=== PATIENT | female | born 1935 | race Caucasian/White ===

== ENCOUNTER 2020-05-11 11:16 | Outpatient (REF) | payer MEDICARE, MEDICAID, SELFPAY ==
--- NOTE | 2020-05-11 11:24 | MM_ITS ---
EXAMINATION: BONE DENSITOMETRY CLINICAL INDICATION: Osteoporosis. COMPARISON: None (current study represents initial baseline exam). TECHNIQUE: Using a Betabrand DXA System (software version: 13.1) manufactured by [employer], dual-energy x-ray absorptiometry was performed of the lumbar spine and left hip. The images are of good technical quality. Summary results are attached. FINDINGS: AP SPINE L1-L3 (excluding L4): The data of L1-L4 has been changed to exclude the L4 vertebral body, because degenerative changes at this level may cause overestimation of lumbar spine density. BMD 0.982 g/cm2, Z-score 0.5, T-score -1.6, osteopenia. LEFT FEMUR, NECK: BMD 0.560 g/cm2, Z-score -1.0, T-score -3.4, osteoporosis. LEFT FEMUR, TOTAL: BMD 0.696 g/cm2, Z-score -0.1, T-score -2.5, osteoporosis. IDENTIFIED RISK FACTORS: Menopause, hysterectomy, bilateral oophorectomy. HISTORY OF FRACTURE: None listed. MEDICATIONS: Vitamin D. MM/XR DEXA axial skeleton IMPRESSION: 1. DIAGNOSIS: Osteoporosis based on the lowest T-score value of -3.4 in the femoral neck applying World Health Organization criteria. 2. 10-YEAR FRACTURE RISK PREDICTION, FRAX: Major osteoporotic fracture (clinical spine, forearm, hip or shoulder) 19.0%. Hip fracture 8.3%. 3. Treatment Recommendations: NOF guidelines recommend consideration for treatment in postmenopausal women and men age 50 and older presenting with the following: -A hip or vertebral (clinical or morphometric) fracture. -T-score less than or equal to -2.5 at the femoral neck or spine after appropriate evaluation to exclude secondary causes. -Low bone mass at the hip or spine and a 10-year fracture probability by FRAX of greater than or equal to 3% for hip fracture or greater than or equal to 20% for major osteoporotic fracture based on the [place] adapted WHO algorithm. 4. Other Recommendations: All treatment decisions require clinical judgment and consideration of individual patient factors, including patient preferences, comorbidities, previous drug use, risk factors not captured in the FRAX model (e.g. frailty, falls, vitamin D deficiency, increased bone turnover, interval significant decline in bone density) and possible under or overestimation of fracture risk by FRAX. Additional medical evaluation for secondary cause of low bone mineral density may be appropriate. FUTURE SCAN RECOMMENDATION: People with diagnosed cases of osteoporosis or at high risk for fracture should have regular bone mineral density tests. For patients eligible for Medicare, routine testing is allowed once every 2 years. The testing frequency can be increased to one year for patients who have rapidly progressing disease, those who are receiving or discontinuing medical therapy to restore bone mass, or have additional risk factors.
== END 2020-05-11 11:17 | disposition home or self-care (01) ==
LOC: HO.MAMMO 11:16
PROVIDERS: Visit Provider Family Medicine
DX: Z13.820 Encounter for screening for osteoporosis (principal); Z78.0 Asymptomatic menopausal state; Z90.710 Acquired absence of both cervix and uterus; Z90.722 Acquired absence of ovaries, bilateral
CPT/HCPCS: 77080

== ENCOUNTER 2020-06-19 09:55 | Outpatient (REF) | payer MEDICARE, MEDICAID, SELFPAY ==
--- NOTE | 2020-06-19 15:19 | MHC.AU.P13 ---
Adult Audiological Evaluation Date of Visit: 06/19/20 Machine Lead Burner Used: Brought daughter with her to help translate Reason for Appointment: Audiological evaluation due to concerns for decreased hearing. Patient's daughter notes that she often seems to withdraw from conversations because she does not hear well and does not want to ask for repetition. Does patient feel they have a hearing loss?: Yes If Yes, Which Ear?: Both Ears Has hearing been tested previously?: No Hearing Handicap Inventory: HHIE SCORE: 4 Based on HHIE score, patient has: No perceived hearing handicap Ear History: Family History of Hearing Loss?: Yes: Paternal family hx of severe HL by middle age Medical History: Medical History (Other): Arthritis, high cholesterol Medication List: Atorvastatin Otoscopy: Right Ear: Unremarkable Left Ear: Unremarkable Tympanometry: Tympanometry performed due to: To assess integrity of the middle ear system Right Ear: Normal Middle Ear System (Type A) Left Ear: Normal Middle Ear System (Type A) Hearing Evaluation: Transducer(s) Used: Insert Earphones, Bone Conduction Method: Conventional Audiometry Stimuli Used: Pure Tones Right Ear: Description of Hearing: Normal hearing from 250-500 Hz, sloping to a mild to severe sensorineural hearing loss from 1240-7615 Hz. Left Ear: Description of Hearing: Normal hearing from 250-500 Hz, sloping to a mild to severe sensorineural hearing loss from 2208-2108 Hz. Speech Recognition Threshold (SRT): Method Used: Recorded Lists Stimuli Used: Spondee Words Right Ear: 40 dBHL Left Ear: 40 dBHL Word Discrimination: Method: Recorded Lists Word Lists Used: Lista Bisil?bica (Guamanian) Right Ear: 92% at 80 dBHL Left Ear: 96% at 80 dBHL Recommendations: Audiological re-evaluation in one year. Trial with amplification is recommended. Medical clearance from a physician is required before fitting. Hearing Aid Fitting will be scheduled when all materials arrive. Diagnosis: Primary Diagnosis: H90.3 Bilateral Sensorineural Hearing Loss Services Performed: Services Performed: Comprehensive Audiological Evaluation (CPT 39358) Tympanometry (CPT 15393) Signature: Provider: Jordin Khan, CCC-A
--- NOTE | 2020-06-19 15:20 | MHC.AU.P13 ---
Hearing Aid Evaluation- Binaural Date of Visit: 06/19/20 Booster Pump Oiler Used: Brought daughter with her to help translate Description of Hearing: Mild sloping to severe sensorineural hearing loss bilaterally. Additional Information: Ms. Cotto and her daughter report significant communication barriers due to her hearing loss. She often withdraws from conversations and social settings due to her inability to hear and understand. Binaural amplification is recommended to facilitate improved communication. Rechargeable aids are recommended, as daughter notes that Ms. Cotto is beginning to have some memory problems/ Hearing Instrument Selection: Right Ear: Sales Development Executive: Phonak Model: Audeo P70-R Battery Size: Rechargeable Color: P6 Esthetic Dermatologist: 1 M Left Ear: Sales Development Executive: Phonak Model: Audeo P70-R Battery Size: Rechargeable Color: P6 Esthetic Dermatologist: 1 M Plan: Plan of Care for Hearing Instrument Fitting: Patient wishes to purchase hearing aids as prescribed Action Taken/Action Needed: Medical Clearance to be requested from PCP/ENT Hearing Fitting to be scheduled when materials arrive Comments: Aids will be ordered once MD clearance received. Diagnosis Code(s): Primary Diagnosis: H90.3 Bilateral Sensorineural Hearing Loss Signature: Provider: Jordin Khan, CCC-A
--- NOTE | 2020-06-19 15:21 | MHC.AU.MED ---
Medical Clearance for Hearing Instrumentation Date: 06/19/20 Patient Name: Chula Cotto Date of : 1935 Referring Provider: Yudy Yusuf MD We have seen your patient on 06/19/20 and have determined that they are a candidate for amplification (See accompanying report). Specifically, they would benefit from: Hearing aid use in both ears There is a statute that addresses Medical Evaluation Requirements prior to fitting a patient with a hearing aid. According to [place] statute [facility] CMR:6.03(1), (a) General. Except as provided in 265 CMR 6.03(1)(b), a hearing aid specialist shall not sell a hearing aid unless the prospective user has presented to the hearing aid specialist a written statement signed by a licensed physician that states that the patient's hearing loss has been medically evaluated and the patient may be considered a candidate for a hearing aid. The medical evaluation must have taken place within the preceding six months. Please note: Due to the [place] Statute referenced above, we cannot accept a signature other than that of a licensed physician. DATA ENTRY PROCESSOR and PA signatures cannot be accepted. I am in agreement with the above recommendation. There is no medical contraindication for hearing instrumentation. Physician Signature Date Physician Name (Printed)
== END 2020-06-19 09:56 | disposition home or self-care (01) ==
LOC: HO.SH 09:55
PROVIDERS: Visit Provider Family Medicine
DX: Z46.1 Encounter for fitting and adjustment of hearing aid (principal); H90.3 Sensorineural hearing loss, bilateral
CPT/HCPCS: 92557; 92567; 92591

== ENCOUNTER 2020-07-31 14:56 | Outpatient (REF) | payer MEDICARE, MEDICAID, SELFPAY | END 2020-07-31 14:57 | disposition home or self-care (01) | LOC: HO.HAP 14:56 | PROVIDERS: Visit Provider Family Medicine | DX: Z46.1 Encounter for fitting and adjustment of hearing aid (principal); H90.3 Sensorineural hearing loss, bilateral | CPT/HCPCS: V5011; V5020; V5160; V5261 ==

== ENCOUNTER 2020-08-19 14:46 | Outpatient (REF) | payer MEDICARE, MEDICAID, SELFPAY | END 2020-08-19 14:47 | disposition home or self-care (01) | LOC: HO.HAP 14:46 | PROVIDERS: Visit Provider Internal Medicine | DX: Z13.89 Encounter for screening for other disorder (principal) ==

== ENCOUNTER 2021-06-15 10:03 | Outpatient (REF) | payer MEDICARE, MEDICAID, SELFPAY ==
--- NOTE | 2021-06-15 16:14 | MHC.AU.AHA ---
Adult Audiological Evaluation Date of Visit: 06/15/21 Technical Services Rep Used: Patient's daughter provided Hungarian interpretation Reason for Appointment: Ms. Cotto was seen for a yearly evaluation due to concerns of a change in hearing status. Patient was fit with bilateral bnbovepn-mf-ing-canal hearing aids in July 2020 but reports that she hasn't been able to adjust to them and hasn't worn them much since she was fit. Ms. Cotto has been having significant difficulties adjusting to the use of DIPAK style hearing aids. She has been having difficulties with insertion and interference of fit due to her glasses. She is interested in trying a different style hearing aid. Her daughter notes that communicating with Ms. Cotto can be difficult due to her inability to hear and understand speech at a normal listening volume or when in the presence of background noise. Previous Hearing Test Results: Previous examination was at our clinic on 06/19/2020 revealing normal hearing through 500 Hz sloping to a severe sensorineural hearing loss thereafter. Ear History: Family History of Hearing Loss?: Yes: Paternal family hx of severe HL by middle age Medical History: Medical History: Arthritis, high cholesterol, history of skin cancer Allergies: No known allergies Medication List: Atorvastatin, Vitamin B/Folic Acid, Fluorouracil, Zostavax, Calcium 600 + Vitamin D, Alendronate sodium Hearing Instrument History- Right Ear: Cutlery Grinder: [employer] ([employer]) Model: Audeo P70-R Serial Number: [id number] Battery Size: Rechargeable Repair Warranty: 10/13/2023 Loss and Damage Warranty: 10/13/2023 Dispensed By: [facility] Date of Fittin07/31/2020 Hearing Instrument History- Left Ear: Cutlery Grinder: [employer] ([employer]) Model: Audeo P70-R Serial Number: [id number] Battery Size: Rechargeable Warranty: 10/13/2023 Loss and Damage Warranty: 10/13/2023 Dispensed By: [facility] Date of Fittin07/31/2020 Otoscopy: Right Ear: Unremarkable Left Ear: Unremarkable Tympanometry: Tympanometry performed due to: To assess integrity of the middle ear system Right Ear: Normal Middle Ear System (Type A) Left Ear: Normal Middle Ear System (Type A) Hearing Evaluation: Transducer(s) Used: Insert Earphones, Bone Conduction Method: Conventional Audiometry Stimuli Used: Pure Tones Right Ear: Description of Hearing: Normal hearing at 250 Hz sloping to a mild to severe sensorineural hearing loss from 500-8000 Hz. Left Ear: Description of Hearing: Mild sloping to severe sensorineural hearing loss from 250-8000 Hz. Speech Recognition Threshold (SRT): Method Used: Recorded Lists Stimuli Used: Hungarian Trisyllable Words Right Ear: 45 dB HL Left Ear: 45 dB HL Word Discrimination: Method: Recorded Lists Word Lists Used: Lista Bisil?bica (Hungarian) Right Ear: 88% at 80 dB HL Left Ear: 96% at 80 dB HL Comparison: Compared to the most recent evaluation: Hearing is stable. Interpretation of Results: Ms. Cotto has a severe sensorineural hearing loss and would benefit greatly from the consistent use of hearing devices. Recommendations: Audiological re-evaluation in one year. Medical clearance from a physician is required before fitting. Prior authorization will be requested for new hearing aids. If approved, hearing aids will be ordered. Diagnosis: Primary Diagnosis: H90.3 Bilateral Sensorineural Hearing Loss Services Performed: Comprehensive Audiological Evaluation (CPT 11395) Tympanometry (CPT 26132) Signature: Student/Clinical Fellow: Yes: Jessy Shepherd BA, Jordin Speech Language Specialist I have reviewed/agreed with student/fellow documentation: Yes Provider: Jordin Khan, [facility]
--- NOTE | 2021-06-15 16:18 | MHC.AU.HAS ---
Hearing Aid Evaluation Date of Visit: 06/15/21 Work Order Sorting Clerk Used: Declined by Patient Historical Information: Description of Hearing: Mild sloping to severe sensorineural hearing loss bilaterally. Current personal amplification information, if applicable: Bilateral Phonak Audeo P70s Summary: Ms. Cotto has been having significant difficulties adjusting to the use of DIPAK style hearing aids. She has been having difficulties with insertion and interference of fit due to her glasses. She has not been able to use them successfully since she received them. She and her daughter both note significant communication difficulties due to Ms. Cotto's hearing loss. Binaural amplification is highly recommended to help facilitate improved communication and quality of life. She would like to try an in-the-ear style hearing aid. Given that the previous hearing aids were fit last year, they cannot be returned to the product safety lead. Prior authorization for a different style hearing aid will be requested through her insurance. Hearing Aid Prescription: Based on the individual?s shared listening needs, communication environments, dexterity, desire for connectivity, and personal preferences, the following prescription for amplification has been made: Right ear: Asset Recovery Specialist: gridComm Model: Evolv AI 1600 CIC NW Battery Size: 10 Color: Walnut Left ear: Asset Recovery Specialist: Gabi Model: Evolv AI 1600 CIC NW Battery Size: 10 Color: Walnut Plan of Care: Earmold Impressions Taken. Prior authorization to be requested. Medical Clearance to be requested from PCP/ENT. If approved, hearing aids will be ordered and a hearing aid fitting will be scheduled when materials arrive. Earmold impressions are in the hold drawer. Primary Diagnosis: H90.3 Bilateral Sensorineural Hearing Loss Signature: Student/Clinical Fellow: Yes: Jessy Shepherd BA, Jordin Benefits Technician I have reviewed/agreed with student/fellow documentation: Yes Provider: Jordin Khan, CCC-A
--- NOTE | 2021-06-15 16:19 | MHC.AU.MED ---
Medical Clearance for Hearing Instrumentation Date: 06/15/21 Patient Name: Chula Cotto Date of : 1935 Referring Provider: Kiki Clarke MD We have seen your patient on 06/15/21 and have determined that they are a candidate for amplification (See accompanying report). Specifically, they would benefit from: Hearing aid use in both ears There is a statute that addresses Medical Evaluation Requirements prior to fitting a patient with a hearing aid. According to [place] statute [facility] CMR:6.03(1), (a) General. Except as provided in 265 CMR 6.03(1)(b), a certified hearing instrument dispenser shall not sell a hearing aid unless the prospective user has presented to the certified hearing instrument dispenser a written statement signed by a licensed physician that states that the patient's hearing loss has been medically evaluated and the patient may be considered a candidate for a hearing aid. The medical evaluation must have taken place within the preceding six months. Please note: Due to the [place] Statute referenced above, we cannot accept a signature other than that of a licensed physician. SUPERVISOR PRODUCT INSPECTION and PA signatures cannot be accepted. I am in agreement with the above recommendation. There is no medical contraindication for hearing instrumentation. Physician Signature Date Physician Name (Printed)
== END 2021-06-15 10:04 | disposition home or self-care (01) ==
LOC: HO.SH 10:03
PROVIDERS: Visit Provider Family Medicine
DX: Z46.1 Encounter for fitting and adjustment of hearing aid (principal); H90.3 Sensorineural hearing loss, bilateral
CPT/HCPCS: 92557; 92567; 92591; V5275

== ENCOUNTER 2023-08-22 08:25 | Outpatient (REF) | payer OTHER, SELFPAY ==
[2023-08-22 13:53] LABS: MANUAL DIFF FLAG NO
[2023-08-22 13:55] LABS: Basophils Percent Auto 0.5 % (0-2); Eosinophils Absolute Auto 0.2 X10*3/uL (0.0-0.4); Eosinophils Percent Auto 2.6 % (0-4); Hematocrit 38.7 % (37.0-47.0); Hemoglobin 12.5 g/dl (12.0-16.0); Imm Gran Abs Auto 0.01 X10*3/uL (0.00-0.03); Imm Gran Pct Auto 0.2 % (0.0-0.4); Lymphocytes Absolute Auto 1.5 X10*3/uL (1.2-4.9); Lymphocytes Percent Auto 25.7 % (20-40); Mean Corpuscular HGB Conc 32.3 g/dl (31.0-35.0); Mean Corpuscular Hemoglobin 30.1 pg (27.0-33.0); Mean Corpuscular Volume 93.3 fL (80.0-98.0); Mean Platelet Volume 10.1 fL (9.4-12.3); Monocytes Absolute Auto 0.6 X10*3/uL (0.1-1.2); Monocytes Percent Auto 11.2 % (2-11); Neutrophils Absolute Auto 3.4 x10*3/uL (2.0-8.3); Neutrophils Percent Auto 59.8 % (45-73); Platelet Count 249 X10*3/uL (160-400); Red Blood Count 4.15 X10*6/uL (4.20-5.50); White Blood Count 5.7 X10*3/uL (4.8-10.8)
[2023-08-22 14:22] LABS: Alanine Aminotransferase 14 U/L (0-31); Albumin Level 3.7 g/dL (3.5-5.0); Alkaline Phosphatase 92 U/L (39-117); Anion Gap 9 (12-20); Aspartate Amino Transferase 21 U/L (5-31); Bilirubin Total 0.7 mg/dL (0.0-1.0); Blood Urea Nitrogen 13 mg/dL (9-16); Calcium 9.4 mg/dL (8.4-10.2); Carbon Dioxide 28 mmol/L (22-29); Chloride 109 mmol/L (96-108); Cholesterol 144 mg/dL (<200); Estimated Glomerular Filt Rate > 60; Glucose Random 82 mg/dL (60-115); HDL Cholesterol 61 mg/dL (>40); LDL Cholesterol Calculated 70 mg/dL (<100); Potassium 3.9 mmol/L (3.3-5.1); Sodium 142 mmol/L (135-145); Total Protein 6.9 g/dL (6.5-8.0); Triglycerides 66 mg/dL (<150)
== END 2023-08-22 08:26 | disposition home or self-care (01) ==
LOC: HO.CHCLDS 08:25
PROVIDERS: Visit Provider Family Medicine
DX: Z00.00 Encounter for general adult medical examination without abnormal findings (principal); Z13.6 Encounter for screening for cardiovascular disorders
CPT/HCPCS: 36415; 80053; 80061; 82306; 85025

== ENCOUNTER 2024-08-16 10:38 | Outpatient (REF) | payer OTHER, SELFPAY ==
[2024-08-16 14:15] LABS: MANUAL DIFF FLAG NO
[2024-08-16 14:42] LABS: Basophils Percent Auto 0.1 % (0-2); Eosinophils Percent Auto 0.2 % (0-4); Hematocrit 38.1 % (37.0-47.0); Hemoglobin 12.5 g/dl (12.0-16.0); Imm Gran Abs Auto 0.02 X10*3/uL (0.00-0.03); Imm Gran Pct Auto 0.2 % (0.0-0.4); Lymphocytes Percent Auto 24.5 % (20-40); Mean Corpuscular HGB Conc 32.8 g/dl (31.0-35.0); Mean Corpuscular Hemoglobin 29.9 pg (27.0-33.0); Mean Corpuscular Volume 91.1 fL (80.0-98.0); Mean Platelet Volume 9.6 fL (9.4-12.3); Monocytes Absolute Auto 0.7 X10*3/uL (0.1-1.2); Monocytes Percent Auto 8.6 % (2-11); Neutrophils Absolute Auto 5.3 x10*3/uL (2.0-8.3); Neutrophils Percent Auto 66.4 % (45-73); Platelet Count 282 X10*3/uL (160-400); Red Blood Count 4.18 X10*6/uL (4.20-5.50); Red Cell Distribution Width 12.5 % (11.0-16.0)
[2024-08-16 15:00] LABS: Alanine Aminotransferase 14 U/L (0-31); Albumin Level 3.8 g/dL (3.5-5.0); Alkaline Phosphatase 91 U/L (39-117); Anion Gap 8 (12-20); Aspartate Amino Transferase 23 U/L (5-31); Bilirubin Total 0.5 mg/dL (0.0-1.0); Blood Urea Nitrogen 15 mg/dL (9-16); Calcium 9.5 mg/dL (8.4-10.2); Carbon Dioxide 27 mmol/L (22-29); Chloride 109 mmol/L (96-108); Cholesterol 147 mg/dL (<200); Estimated Glomerular Filt Rate > 60; Glucose Random 97 mg/dL (60-115); HDL Cholesterol 60 mg/dL (>40); LDL Cholesterol Calculated 74 mg/dL (<100); Potassium 3.8 mmol/L (3.3-5.1); Sodium 140 mmol/L (135-145); Triglycerides 66 mg/dL (<150)
[2024-08-16 15:01] LABS: Estimated Average Glucose 117 mg/dL; Hemoglobin A1c % 5.7 % (<6.0)
[2024-08-16 15:04] LABS: TSH reflex Free T4 0.84 uIU/mL (0.32-4.0); Vitamin D 25-OH Total 48.1 ng/mL (>30)
== END 2024-08-16 10:39 | disposition home or self-care (01) ==
LOC: HO.CHCLDS 10:38
PROVIDERS: Visit Provider Registered Nurse
DX: Z00.00 Encounter for general adult medical examination without abnormal findings (principal); Z13.1 Encounter for screening for diabetes mellitus; Z13.6 Encounter for screening for cardiovascular disorders
CPT/HCPCS: 36415; 80053; 80061; 82306; 83036; 84443; 85025

== ENCOUNTER 2024-09-24 10:42 | Outpatient (REF) | payer OTHER, SELFPAY ==
--- NOTE | ~2024-09-24 | MM_ITS ---
EXAMINATION: DXA BONE DENSITY AXIAL HISTORY: OSTEOPOROSIS TECHNIQUE: Syndero Dual energy absorptiometry (DEXA) of the lumbar spine, total left hip, and femoral neck was performed. COMPARISON: Comparison is made with the prior examination dated 05/11/2020. FINDINGS: The bone mineral density of the lumbar spine is 1.012 with a T-score of -1.3, and a Z-score of 0.9. This is indicative of osteopenia. This represents a BMD change of 10.0% compared to the prior exam. This is statistically significant. The bone mineral density of the left total hip is 0.774 with a T-score of -1.9, and a Z-score of 0.7. This is indicative of osteopenia. This represents a BMD change of 11.2% compared to the prior exam. This is statistically significant. The bone mineral density of the left femoral neck is 0.684 with a T-score of -2.5, and a Z-score of 0.1. This is indicative of osteoporosis. This represents a BMD change of 22.1% compared to the prior exam. FRACTURE RISK: The FRAX index suggests a ten year probability of major osteoporotic fracture of 10.7%, and of hip fracture 3.8%. MM/XR DEXA axial skeleton IMPRESSION: Based on bone mineral density, and according to World Health Organization (WHO) criteria, the diagnosis is consistent with osteoporosis. All bone density values are in grams per centimeter squared (g/cm2). Statistically, 68% of repeat scans fall within 1 SD (+/- 0.010 g/cm2 for AP spine L1-L4) and 1 SD (+/- 0.012 g/cm2 for femur total) FRAX is a trademark of the [employer]'s [employer] Metabolic [employer] Disease, a World Health Organization (WHO) Collaborating Center. Electronically signed by: Charlie Vogt MD 09/24/2024 12:37 PM EDT
--- OUTSIDE RECORDS SUMMARY | 2024-09-24 12:21 | XMS_ITS | Encounter Summary ---
Author Organization [employer] Address [address] [place] [address] Care Team Providers Care Pointer Machine Operator Name Role Phone Yudy Yusuf MD Primary Care Provider [phone] Reason for Visit * Reason Onset Date Comments Pre op 09/04/2024 Encounter Details Date Type Department Care Team (Late st Contact Info) Description 09/04/2024 Telephone [facility] MEDICINE [address] [place] [address] Yudy Yusuf MD [address] [place] [address] Pre op Social History Tobacco Use Types Packs/Day Years Used Date Smoking Tobacco: Never Smokeless Tobacco: Never Alcohol Use Standard Drinks/Week Comments Defer 0 (1 standard drink = 0.6 oz pur e alcohol) Depression Answer Date Recorded Patient Health Questionnaire-9 Score 0 08/16/2024 Patient Health Questionnaire-9 Score 0 08/16/2024 Last PHQ-9: Questionnaire Data Not on file 0 08/16/2024 Housing Stability Answer Date Recorded What is your housing situation today? I have sundar mosqueda 08/16/[address] you li ve. Do you have problems with any of the following? None of the above 08/16/2024 Food Insecurity Answer Date Recorded Within the past 12 months, y ou worried that your food would run out before you got money to buy more: Never True 08/16/2024 Within the past 12 months,th e food you bought just didn't last and you didn't have enough money to get more: Never True Transportation Answer Date Recorded In the past 12 months, has l ack of transportation kept you from medical appts, meetings, work or from getting things needed for daily living? No 08/14/2023 Utilities Answer Date Recorded In the past 12 months, has t he electric, gas, oil or water company threatened to shut off services in your home? No 08/16/2024 Depression Answer Date Recorded Patient Health Questionnaire-2 Score 0 08/16/2024 Internet Access Answer Date Recorded Internet Access Q1 No 08/16/2024 Internet Access Q2 Not on file 08/16/2024 Comments Unknown Sex and Gender Information Value Date Recorded Sex Assigned at Female 03/21/2022 10:29 AM EDT Legal Sex Female 10:29 AM EDT Gender Identity Female 03/21/2022 10:29 AM EDT Sexual Orientation Straight 03/21/2022 10 :29 AM EDT documented as of this encounter Miscellaneous Notes * Telephone Encounter - Francine Benites - 09/06/2024 9:46 AM EDT Facility agreed to pre op appointment on 11/01/24 at 2:45PM with Reg[facility]. Appointment reminder letter mailed * Telephone Encounter - Sridhar Rodriguez - 09/04/2024 10:35 AM EDT Date of Surgery: 11/20/24 Surgical procedure being done: Repair of Basale cell [place] Type of anesthesia: general anesthesia Lab needed: To the Providers desgretion EKG: Providers Choice Surgeon's name: Dr. Ignacio Alejandro Facility name: [facility] Surgeon's office number: [phone] Surgeon's office fax number: [phone] Contact name (person you spoke with): Zoraida Last office note from surgeon requested: No Send Message to Francine Benites and Christiano Marquis Contact Zoraida at [phone] documented in this encounter Plan of Treatment Upcoming Encounters Date Type Department Care Team (Late st Contact Info) Description 11/01/2024 2:45 PM EDT Office Visit [facility] MED [facility] P[facility]S [address] [place] [address] Tank Rajput MD [address] [place] [address] documented as of this encounter Visit Diagnoses Not on filedocumented in this encounter Additional Health Concerns Assessment Noted Time PHQ-9 Depression Total Score: 0 08/17/19 25 1:17 PM EDT documented as of this encounter Care Teams Pointer Machine Operator Relationship Specialty Start Date End Date Yudy Yusuf MD [address] [place] [id number] PCP - General Family Medicine 04/27/21 documented as of this encounter
--- OUTSIDE RECORDS SUMMARY | 2024-09-24 12:21 | XMS_ITS | Clinical Summary ---
Author Organization [employer] Address [address] [place] [address] Care Team Providers Care Exploration Geologist Name Role Phone Yudy Yusuf MD Primary Care Provider [phone] Allergies No known active allergies Medications alendronate (Fosamax) 70 MG tablet TAKE 1 TABLET EVERY WK IN THE AM, AT LEAST 30 MIN BEFORE FIRST FOOD, BEVERAGE, OR MEDICATION OF DAY 12 tablet 3 4 Active atorvastatin (Lipitor) 40 MG tablet TAKE 1 TABLET BY MOUTH EVERYDAY AT BEDTIME 90 tablet 3 4 Active Active Problems Problem Noted Date Diagnosed Date Osteoporosis 07/25/2022 Assessment & Plan (08/18/2024 8:53 AM EDT): Continue Alendronate and OTC calcium/vitamin D supplementation Bone density study ordered to evaluate the effectiveness of treatment and osteoporosis progression. Encouraged fall prevention strategies. Assessment & Plan (08/14/2023 11:06 PM EDT): Continue Alendronate and vitamin D supplementation. Scheduled a bone density study to evaluate the effectiveness of treatment and osteoporosis progression. Educated the patient on fall prevention strategies. Physical exam, annual 07/25/2022 Assessment & Plan (08/14/2023 11:09 PM EDT): - Doing well. Reviewed medications. Health screening. - Does have some decline in her mobility and memory since last year but stable - Reported elbow tenderness but it is likely related to age. Recommend OTC pain relief as needed and monitor for any worsening. - Continue to monitor weight and nutritional intake. Educated patient on nutrition and exercise. Labs: Lipid panel, CBC, CMP, Vitamin D, Albumin Assessment & Plan (07/25/2022 2:38 PM EST): Doing well. Reviewed medications. Health screening. Get up and go: 14 seconds, does have risk of falls On second year of alendronate, will check labs and followup as needed GDS score: 1 Does have some decline in her mobility and memory since last year but stable Did notice 6 lbs weight gain, decrease appetite. Will send labs. Needs [employer] gold for program Hypercholesterolemia 06/11/2015 Overview (08/18/2024): Lab Results Component Value Date CHOL 147 08/16/2024 CHOL 144 08/22/2023 TRIG 66 08/16/2024 TRIG 66 08/22/2023 TRIG 91 07/25/2022 HDL 60 08/16/2024 HDL 61 08/22/2023 LDLCHOLCAL 74 08/16/2024 LDLCHOLCAL 70 08/22/2023 -cont atorvastatin 40mg nightly -continue lifestyle modification Assessment & Plan (08/18/2024 8:53 AM EDT): Well controlled, cont current regimen Encounters Date Type Department Care Team Description 09/04/2024 Telephone [facility] [address] [place] [address] Yudy Yusuf MD Pre op 08/16/2024 9:30 AM EDT Office Visit [facility] [address] [place] [address] Maribell Ureña, GUILLERMO Osteoporosis, unspecified osteoporosis type, unspecified pathological fracture presence (Primary Dx); Hypercholesterolemia; Dietary counseling; Exercise counseling; Healthcare maintenance 08/16/2024 Travel 08/15/2024 Telephone [facility] [address] [place] [address] Yudy Yusuf MD Chart Prep 08/09/2024 Patient Outreach [facility] [address] [place] [address] Yudy Yusuf MD Pre-visit Planning ([facility] unable to reach [facility] ) from Last 3 Months Immunizations Name Administration Dates Next Due Influenza High-dose Quadriva lent Preservative Free 03/04/2023,01/30/2021 Influenza Quadrivalent Adjuvanted 03/07/2022,04/2020 Influenza injectable quadriv alent preservative free 01/30/2020 Influenza, High Dose Seasona l, Preservative Free 03/02/2024,01/26/2019,02/26/2018,03/07,03/05/2016 Pneumococcal Conjugate PCV 13 02/28/2020, 020 Pneumococcal Conjugate PCV 20 03/02/2024 Pneumococcal Polysaccharide PPSV23 07/17/2017 RSV Adjuvant 03/04/2023 Tdap 07/17/2017 Zoster, Recombinant 11/15/2019,03/10/2019 Social History Tobacco Use Types Packs/Day Years Used Date Smoking Tobacco: Never Smokeless Tobacco: Never Tobacco Cessation:Counseling Given: Not Answered Alcohol Use Standard Drinks/Week Comments Defer 0 [...] Orientation Straight 03/21/2022 10 :29 AM EDT Last Filed Vital Signs Vital Sign Reading Time Taken Comments Blood Pressure 140/73 08/16/2024 9:30 AM EDT Pulse 82 08/16/2024 9:30 AM EDT Temperature 36.1 ??C (97 ??F) 08/16/2024 9:30 AM EDT Respiratory Rate 16 08/16/2024 9:30 AM EDT Oxygen Saturation 98% 08/16/2024 9:30 AM EDT Inhaled Oxygen Concentration - - Weight 55.2 kg (121 lb 12.8 oz) 08/16/2024 9:30 AM EDT Height 142.2 cm (4' 8 ) 08/16/2024 9:30 AM EDT Body Mass Index 27.31 08/16/2024 9:30 AM EDT Plan of Treatment Upcoming Encounters Date Type Department Care Team (Late st Contact Info) Description 11/01/2024 2:45 PM EDT Office Visit [facility] [address] [place] [address] Tank Rajput MD [address] [place] [address] Health Maintenance Due Date Last Done Comments Alcohol/Substance Use Screening 1947 SDOH Screening 08/13/2024 08/14/2023 Depression Screening 08/16/2025 08/16/2024, 08/17/19 Diabetes: Hemoglobin A1C 08/16/2025 025, 06/09/2021, 03/16/2020 Tobacco Screening 08/18/2025 08/18/2024 DTaP/Tdap/Td Vaccines (2 - Td or Tdap) 07/17/2027 07/17/2017 Zoster Vaccines Completed 11/15/2019, 03/10/2019 RSV Patients and Patients Aged 60 years or older Completed 03/04/2023 COVID-19 Vaccine Completed 03/02/2024, , 03/05/2022, Additional history exists Influenza Vaccine Completed 03/02/2024, , 03/07/2022, Additional history exists Pneumococcal Vaccine: 50+ Years Completed 03/02/2024, 02/28/2020, 02/01/2020, Additional history exists HIB Vaccines Aged Out No longer eligi ble based on patient's age to complete this topic HPV Vaccines Aged Out No longer eligi ble based on patient's age to complete this topic Hepatitis A Vaccines Aged Out No long er eligible based on patient's age to complete this topic Hepatitis B Vaccines Aged Out No long er eligible based on patient's age to complete this topic IPV Vaccines Aged Out No longer eligi ble based on patient's age to complete this topic Meningococcal Vaccine Aged Out No mirta ly eligible based on patient's age to complete this topic RSV under 20 months Aged Out No longe r eligible based on patient's age to complete this topic Rotavirus Vaccines Aged Out No longer eligible based on patient's age to complete this topic Procedures Procedure Name Priority Date/Time Associated Diagnosis Comments VITAMIN D,25-OH,TOTAL,IA Routine 08/16/2024 10:39 AM EDT Healthcare maintenance TSH W/REFLEX TO FT4 Routine 08/16/2024 1 0:39 AM EDT Healthcare maintenance HEMOGLOBIN A1C Routine 08/16/2024 10:39 AM EDT Healthcare maintenance LIPID PANEL, STANDARD Routine 08/16/2024 10:39 AM EDT Healthcare maintenance COMPREHENSIVE METABOLIC PANEL Routine 08/16/2024 10:39 AM EDT Healthcare maintenance CBC WITH AUTO DIFFERENTIAL Routine 08/16/2024 10:39 AM EDT Healthcare maintenance from Last 3 Months Results * Vitamin D, 25-Hydroxy, Total, Immunoassay (08/16/2024 10:39 AM EDT) Vitamin D 25-OH Total 48.1 >30 ng/mL [facility] Comment: Health Based Reference Values*< 20 ??ng/mL ??Vyudppxgl45-93 ng/mL ??Insufficient> 30 ??ng/mL ??Sufficient*Chris SEBASTIAN. N Engl J Med. 2007;[id number] is no well-established upper level of normal vitamin Dlevels. Some laboratories use 50 ng/mL as an upper limit ofnormal. However, toxicity is patient-dependent and may occurat any level. Careful correlation with the patient'spresentation is necessary and, if there is concern forvitamin D toxicity, treatment should be consideredirrespective of the serum level.Care must be taken in interpreting Vitamin D results fromdifferent laboratories and methodologies. ??Published datademonstrated that results from patients undergoinghemodialysis may show a negative bias when tested withvarious automated 25-OH vitamin D assays when compared toLC- MS/MS.When testing samples from patients whose predominant form ofVitamin D is Vitamin D2, such as patients receiving VitaminD2 supplementation, results that are subtherapeutic shouldbe confirmed with another method such as LC-MS/MS. Blood Venous blood specimen / Unknown 08/16/2024 10:39 AM EDT 08/16/2024 2:08 PM EDT Maribell Ureña [facility] BLOOD ORDERABLES Final Res ult Performing Organization Address [facility] Co de Phone Number [facility] [address] [place] [phone] * TSH W/Reflex to FT4 (08/16/2024 10:39 AM EDT) TSH reflex Free T4 0.84 0.32 - 4.0 uIU/mL [facility] Blood Venous blood specimen / Unknown 08/16/2024 10:39 AM EDT 08/16/2024 2:08 PM EDT Maribell Ureña [facility] BLOOD ORDERABLES Final Res ult Performing Organization Address City/[facility] Co de Phone Number [facility] [address] [place] [address] [phone] * (ABNORMAL) CBC auto differential (08/16/2024 10:39 AM EDT) White Blood Count 8.0 4.8 - 10.8 X10*3/uL [facility] Red Blood Count 4.18(L) 4.20 - 5.50 X10*6/uL [facility] Hemoglobin 12.5 12.0 - 16.0 g/dl [facility] Hematocrit 38.1 37.0 - 47.0 % [facility] Mean Corpuscular Volume 91.1 80.0 - 98.0 fL [facility] Mean Corpuscular Hemoglobin 29.9 27.0 - 33.0 pg [facility] Mean Corpuscular HGB Conc 32.8 31.0 - 35.0 g/dl [facility] Red Cell Distribution Width 12.5 11.0 - 16.0 % [facility] Platelet Count 282 160 - 400 X10*3/uL [facility] Mean Platelet Volume 9.6 9.4 - 12.3 fL [facility] Neutrophils Percent Auto 66.4 45 - 73 % [facility] Imm Gran Pct Auto 0.2 0.0 - 0.4 % [facility] Lymphocytes Percent Auto 24.5 20 - 40 % [facility] Monocytes Percent Auto 8.6 2 - 11 % [facility] Eosinophils Percent Auto 0.2 0 - 4 % [facility] Basophils Percent Auto 0.1 0 - 2 % [facility] NRBC Pct Auto 0.0 0.0 - 0.2 /100WBC [facility] Neutrophils Absolute Auto 5.3 2.0 - 8.3 x10*3/uL [facility] Imm Gran Abs Auto 0.02 0.00 - 0.03 X10*3/uL [facility] Lymphocytes Absolute Auto 2.0 1.2 - 4.9 X10*3/uL [facility] Monocytes Absolute Auto 0.7 0.1 - 1.2 X10*3/uL [facility] Eosinophils Absolute Auto 0.0 0.0 - 0.4 X10*3/uL [facility] Basophils Absolute Auto 0.0 0.0 - 0.2 X10*3/uL [facility] NRBC Abs Auto 0.000 0.0 - 0.012 X10*3/uL [facility] Blood Venous blood specimen / Unknown 08/16/2024 10:39 AM EDT 08/16/2024 2:08 PM EDT Maribell Ureña [facility] LAB BLOOD ORDERABLES Final Res ult Performing Organization Address [facility] Co de Phone Number [facility] [address] [place] [phone] * Hemoglobin A1c (08/16/2024 10:39 AM EDT) Hemoglobin A1c 5.7 <6.0 % [facility] Comment:Hemoglobin A1C Refer ence Range Adults: 4.8 - 6.0 % Non diabetic: < 6.0 % Goal: < 7.0 %Additional Action Suggested: > 8.0 %Note: Hemoglobin A1c results are invalid for patients with abnormal amounts of HbF. Blood transfusions may impact the HbA1c concentration in the patient sample. Estimated Average Glucose 117 mg/dL [facility] Comment:eAG = Estimated ave rage glucose which is %A1C expressed asaverage glucose, using the formula of the [id number] Glucose study (ADAG), Diabetes Care, Vol.31,#8,Dec. 2007 Blood Venous blood specimen / Unknown 08/16/2024 10:39 AM EDT 08/16/2024 2:08 PM EDT Maribell Ureña [facility] LAB BLOOD ORDERABLES Final Res ult Performing Organization Address [facility] Co de Phone Number [facility] [address] [place] [phone] * Lipid Panel, Standard (08/16/2024 10:39 AM EDT) Triglycerides 66 <150 mg/dL [facility] Comment:Desirable Triglyceri de: less than 150 mg/dLBorderline High Triglyceride 150-199 mg/dLHigh Triglyceride: 200-499 mg/dLVery High Triglyceride: greater than or equal to 5OO mg/dL Cholesterol 147 <200 mg/dL [facility] Comment:Desirable Cholestero l: less than 200 mg/dLBorderline High Cholesterol: 200-239 mg/dLHigh Cholesterol: greater than 239 mg/dL LDL Cholesterol Calculated 74 <100 mg/dL [facility] Comment:Desirable LDL: less than 100 mg/dLNear Optimal/Above Optimal LDL: 110- 129 mg/dLBorderline High LDL: 130-159 mg/dLHigh LDL: 160-189 mg/dLVery High LDL: greater than or equal to 190 mg/dL HDL Cholesterol 60 >40 mg/dL [facility] Comment:Desirable HDL: great er than 40 mg/dL Note: This HDL assay may give artificially low results in patients with liver disease. Blood Venous blood specimen / Unknown 08/16/2024 10:39 AM EDT 08/16/2024 2:08 PM EDT us Maribell Ureña [facility] LAB BLOOD ORDERABLES Final Res ult [facility] [address] [place] [phone] * (ABNORMAL) Comprehensive Metabolic Panel (08/16/2024 10:39 AM EDT) Sodium 140 135 - 145 mmol/L [facility] Potassium 3.8 3.3 - 5.1 mmol/L [facility] Chloride 109(H) 96 - 108 mmol/L [facility] Carbon Dioxide 27 22 - 29 mmol/L [facility] Anion Gap 8(L) 12 - 20 [facility] Urea Nitrogen (BUN) 15 9 - 16 mg/dL [facility] Creatinine, Serum 0.65 0.5 - 1.4 mg/dL [facility] Estimated Glomerular Filt Rate >60 [facility] Comment:Chronic Kidney Disea se: Estimated GFR < 60 mL/min/[id number] Kidney Disease: Estimated GFR < 15 mL/min/1.73m2 Glucose 97 60 - 115 mg/dL [facility] Calcium 9.5 8.4 - 10.2 mg/dL [facility] Bilirubin, Total 0.5 0.0 - 1.0 mg/dL [facility] Aspartate Amino Transferase 23 5 - 31 U/L [facility] Alanine Aminotransferase 14 0 - 31 U/L [facility] Total Protein 7.0 6.5 - 8.0 g/dL [facility] Albumin Level 3.8 3.5 - 5.0 g/dL [facility] Alkaline Phosphatase 91 39 - 117 U/L [facility] Blood Venous blood specimen / Unknown 08/16/2024 10:39 AM EDT 08/16/2024 2:08 PM EDT us Maribell Ureña [facility] LAB BLOOD ORDERABLES Final Res ult [facility] [address] [place] [phone] [phone] from Last 3 Months Insurance [facility] [employer] (HMO D-SNP) EDIRDRE KEARNS [id number] Advance Directives Documents on File Type Date Recorded Patient Business Analysis Consultant Expl anation Advance Directives and Living Will 08/20/2024 4:20 PM HCP Advance Directives and Living Will 11/01/2023 Health Care Proxy Care Teams Exploration Geologist Relationship Specialty Start Date End Date Yudy Yusuf MD [address] [place] [phone] PCP - General Family Medicine 04/27/21
== END 2024-09-24 10:43 | disposition home or self-care (01) ==
LOC: HO.MAMMO 10:42
PROVIDERS: PCP Family Medicine; Visit Provider Registered Nurse
DX: M81.0 Age-related osteoporosis without current pathological fracture (principal)
CPT/HCPCS: 77080

== ENCOUNTER → 2024-09-24 11:00 | Outpatient (BNV) | payer OTHER, SELFPAY | PROVIDERS: PCP Family Medicine; Visit Provider Radiology Diagnostic Radiology | DX: E28.39 Other primary ovarian failure (principal) | CPT/HCPCS: 77080 ==

== ENCOUNTER 2024-11-04 08:29 | Outpatient (REF) | payer OTHER, SELFPAY ==
--- OUTSIDE RECORDS SUMMARY | 2024-11-04 08:53 | XMS_ITS | Encounter Summary ---
Author Organization [employer] Address [address] [place] [address] Care Team Providers Care Masticator Name Role Phone Yudy Yusuf MD Primary Care Provider [phone] Encounter Details Date Type Department Care Team (Latest Contact Info) Description 11/01/2024 Travel Social History Tobacco Use Types Packs/Day Years [...] AM EDT documented as of this encounter Plan of Treatment Not on file documented as of this encounter Visit Diagnoses Not on filedocumented in this encounter Additional Health Concerns Assessment Noted Time PHQ-9 Depression Total Score: 0 08/17/19 25 1:17 PM EDT documented as of this encounter Care Teams Masticator Relationship Specialty Start Date End Date Yudy Yusuf MD [address] [place] [address] PCP - General Family Medicine 04/27/21 documented as of this encounter
[2024-11-04 14:06] LABS: MANUAL DIFF FLAG NO
[2024-11-04 14:13] LABS: Basophils Percent Auto 0.4 % (0-2); Eosinophils Absolute Auto 0.1 X10*3/uL (0.0-0.4); Eosinophils Percent Auto 0.7 % (0-4); Hematocrit 37.1 % (37.0-47.0); Hemoglobin 12.3 g/dl (12.0-16.0); Imm Gran Abs Auto 0.02 X10*3/uL (0.00-0.03); Imm Gran Pct Auto 0.3 % (0.0-0.4); Lymphocytes Absolute Auto 1.8 X10*3/uL (1.2-4.9); Lymphocytes Percent Auto 24.6 % (20-40); Mean Corpuscular HGB Conc 33.2 g/dl (31.0-35.0); Mean Corpuscular Hemoglobin 30.1 pg (27.0-33.0); Mean Corpuscular Volume 90.7 fL (80.0-98.0); Mean Platelet Volume 9.6 fL (9.4-12.3); Monocytes Absolute Auto 0.8 X10*3/uL (0.1-1.2); Monocytes Percent Auto 11.1 % (2-11); Neutrophils Absolute Auto 4.7 x10*3/uL (2.0-8.3); Neutrophils Percent Auto 62.9 % (45-73); Platelet Count 259 X10*3/uL (160-400); Red Blood Count 4.09 X10*6/uL (4.20-5.50); Red Cell Distribution Width 12.7 % (11.0-16.0); White Blood Count 7.5 X10*3/uL (4.8-10.8)
[2024-11-04 14:26] LABS: Anion Gap 10 (12-20); Blood Urea Nitrogen 19 mg/dL (9-16); Calcium 9.1 mg/dL (8.4-10.2); Carbon Dioxide 25 mmol/L (22-29); Chloride 109 mmol/L (96-108); Estimated Glomerular Filt Rate > 60; Glucose Random 98 mg/dL (60-115); Potassium 3.9 mmol/L (3.3-5.1); Sodium 140 mmol/L (135-145)
== END 2024-11-04 08:30 | disposition home or self-care (01) ==
LOC: HO.CHCLDS 08:29
PROVIDERS: Visit Provider Internal Medicine
DX: Z01.818 Encounter for other preprocedural examination (principal)
CPT/HCPCS: 36415; 80048; 85025